=== PATIENT | male | born 1935 | race Caucasian/White ===

== ENCOUNTER 2020-04-30 18:20 | Emergency (ER) | payer MEDICARE, OTHER ==
[~2020-04-30] VITALS: Ht 172.7 cm; Wt 83.0 kg
--- NOTE | 2020-04-30 18:32 | NUR ---
84 Y/O MALE TRANSFERRED FROM [facility]. PER REPORT ORIGINAL CALL WAS BECAUSE PT WAS FOUND UNRESPONSIVE AT HIS PLACE OF LIVING ([facility] [place]). PT WAS TRANSPORTED TO [place]. PT WSA FOUND TO HAVE UTI. PT WAS GIVEN IVF AND ROCEPHIN. PER EMS, WHO WAS FIRST ON SCENE ON ORIGINAL CALL, HE IS MORE ALERT THAT WHEN SHE FIRST WENT ON THE CALL. PT ARRIVES WITH NO PIV. PER REPORT PT PULLED IT OUT WHEN THEY GOT IN THE BAY. PT STATES HE DOESN'T HAVE ANY PAIN. NADN. 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 NO C/O PAIN, N/V/D, TRAUMA, SYNCOPE, CP, SOB.
--- NOTE | 2020-04-30 18:59 | NUR ---
bedside report to ANNETTE Vaz. piv established. pt tolerated with no complications
--- NOTE | 2020-04-30 19:51 | NUR ---
Liza (daughter) called for an update. Her callback number is
--- NOTE | 2020-04-30 19:51 | NUR ---
[facility] CONTACTED FOR INFORMATION ABOUT PT PACEMAKER. FACILITY STATES THEY WILL CALL BACK WITH THE REQUESTED INFORMATION. PT IN BED, PULLING OFF MONITORING DEVICES, ATTEMPTING TO CLIMB OUT THE FOOT OF THE BED. PT REDIRECTED, COOPERATIVE THOUGH STILL CONFUSED. A&Ox1. SITTER REQUESTED AND AT BEDSIDE NOW FOR PT SAFETY MONITORING. CALL LIGHT IN REACH.
[2020-04-30 20:57] VITALS: BP 118/50
--- NOTE | 2020-04-30 20:59 | NUR ---
TAMIKA ESPARZA, DAUGHTER/GUARDIANSHIP/POA [phone]
--- NOTE | 2020-04-30 21:07 | NUR ---
5TH FLOOR CONTACTED FOR INTERROGATION OF PACEMAKER. VOICEMAIL LEFT FOR ANIMAL BIOLOGIST. PT REMAINS IN BED WITH AERIAL ADVERTISER AT BEDSIDE. CALL LIGHT IN REACH.
--- NOTE | 2020-04-30 21:51 | NUR ---
PACEMAKER INTERROGATED, REPORTS PRINTED AND HANDED TO ERP. PT RESTING IN BED, SITTER AT BEDSIDE. DENIES ANY NEEDS OR CONCERNS AT THIS TIME, CALL LIGHT IN REACH.
--- NOTE | 2020-04-30 22:55 | NUR ---
DAUGHTER NOTIFIED OF PT IMPENDING DISCHARGE BACK TO HIS FACILITY OF RESIDENCE. DENIES ANY FURTHER QUESTIONS OR CONCERNS AT THIS TIME.
== END 2020-04-30 23:40 | disposition home or self-care (01) ==
LOC: ED 22:36
DX: R55 Syncope and collapse (principal); R41.82 Altered mental status, unspecified; I25.10 Atherosclerotic heart disease of native coronary artery without angina pectoris; E78.5 Hyperlipidemia, unspecified; I10 Essential (primary) hypertension; Z95.0 Presence of cardiac pacemaker
CPT/HCPCS: 99283